=== PATIENT | female | born 1990 | race Caucasian/White ===

== ENCOUNTER 2016-09-30 21:06 | Emergency (ER) | payer MEDICAID ==
--- NOTE | ~2016-09-30 | ER ---
PATIENT'S NAME: LUKE MCKINNON [facility] AGE: 26 Y [address] ROOM: [place], [place] [address] LOCATION: [facility] ADMIT DATE: 09/30/2016 ER/Outpatient Report DISCHARGE DATE: 09/30/2016 FAMILY PHYSICIAN: Anderson Sandoval ATTENDING PHYSICIAN: Reinier Ortez Time of Arrival: 2106 hours. Time of Evaluation: 2120 hours. CHIEF COMPLAINT: Lump behind right ear, rapid heart rate. HISTORY OF PRESENT ILLNESS: This is a 26-year-old female, who presents to the ER with a couple of different complaints. She states she noticed a lump behind her right ear a couple of weeks ago. She was seen by her primary care physician in [place], and during that same time, she had a flare-up of her MRSA on the inside of her leg. She states that she was not quite for sure what the lump was behind her ear but thought it was a lymph node. She was ultimately started on Bactrim at that time. She states leg has healed up, but the lump behind her right ear is still there. She states that she constantly wonders what is wrong with it and feels like maybe it is causing her to have a headache now. She states then today, she noticed that her heart rate felt fast. She also believes she has been running a low-grade fever, but she has not taken her temperature. The patient states that she has had no injury to the right side of her head. She denies any ear pain. No upper respiratory infection. No cough. No sore throat. The patient states that she is also trying to lose weight. She has been cutting back on her Pepsi intake. She states that she normally drinks 40 mL of Pepsi a day, but today, she had less than one can. Mother states that she is a fairly anxious person. She does not take anything for that however. ALLERGIES: PLEASE SEE MEDICATION LIST IN NURSE'S NOTES. MEDICATIONS: Please see medication list in nurse's notes. PAST MEDICAL HISTORY: History of MRSA, ovarian cyst. PAST SURGICAL HISTORY: She has had a history of lithotripsy, tonsillectomy, adenoids, and C-sections. SOCIAL HISTORY: Smokes half pack a day. Denies any drug or alcohol use. PATIENT'S NAME: LUKE [facility]CKINNON [facility] AGE: 26 Y [address] ROOM: [place], [place] [address] LOCATION: [facility] ADMIT DATE: 09/30/2016 ER/Outpatient Report DISCHARGE DATE: 09/30/2016 FAMILY PHYSICIAN: Anderson Sandoval ATTENDING PHYSICIAN: Reinier Ortez REVIEW OF SYSTEMS: A 10-point review of system was completed and was negative with the exception of those discussed in the HPI. PHYSICAL EXAMINATION: VITAL SIGNS: Height 5 feet 6 inches stated, weight 106.2 kg taken, blood pressure is 153/97, pulse 93, respirations 18, temperature 99.3 degrees tympanically, saturations 95% on room air. Sevier Coma Score is 15. GENERAL: An alert, anxious 26-year-old, in no acute distress. HEENT: Head: Normocephalic. Eyes: Pupils are equal and reactive to light. Ears: TMs display good light reflexes bilaterally. Her right ear canal is slightly erythematic. There is no purulent drainage noted. Throat: No exudates or erythema. She does display moist mucous membranes. NECK: Supple. She does have some lymphadenopathy noted to the posterior and anterior chains. She does have some swelling noted to the posterior portion of her ear and under her jawline as well. It is slightly tender to palpate. There is no erythema. There are no abrasions or rashes noted. LUNGS: Clear to auscultation bilaterally. No wheezes or crackles. Normal respiratory effort. HEART: Regular rate and rhythm. No lifts, thrills, or murmurs. ABDOMEN: Soft, nontender. She has good bowel sounds throughout. No masses are palpated. EXTREMITIES: No clubbing, cyanosis, or edema. She has full range of motion of all limbs. LABORATORY DATA AND X-RAYS: CBC: White count is 9.3, hemoglobin is 12.7, platelets 364, ANC is 5.2. INR is 1.0. CMS is unremarkable. Cardiac enzymes: CPK 81, CK-MB is 1.1, troponin I is less than 0.040. TSH is normal at 1.540. EKG shows normal sinus rhythm. Chest x-ray was negative for any infiltrate. CT scan shows that increased number of several subcentimeter anterior and posterior cervical chain lymph nodes as well as scattered occipital lymph nodes. There is one lymph node that measures 7 mm in the right posterior articular subcutaneous soft tissue. IMPRESSION: 1. Lymphadenopathy. 2. Heart palpitations. 3. History of methicillin-resistant Staphylococcus aureus with recent Bactrim use. ASSESSMENT AND PLAN: I did discuss the patient's care with Dr. Ortez. The patient did rest comfortably the entire stay. I advised her to monitor her symptoms closely. PATIENT'S NAME: LUKE [facility]CK[facility]NON [facility] AGE: 26 Y [address] ROOM: [place], [place] [address] LOCATION: [facility] ADMIT DATE: 09/30/2016 ER/Outpatient Report DISCHARGE DATE: 09/30/2016 FAMILY PHYSICIAN: Anderson Sandoval ATTENDING PHYSICIAN: Reinier Ortez She needs to do Tylenol or ibuprofen as needed. She should continue doing her Bactrim as directed, and she needs to follow up with her primary care physician by the end of the week for followup care. The patient and the patient's mother understand and agree with care. MARCELLO HARLEY PA-C FOR [facility]/cassidy /[id number] d: t: 10/04/16 1342, OUTPATIENT REPORT
[2016-09-30 22:00] LABS: BASOPHIL # 0.1 K/uL (0.0-0.2); BASOPHIL % 0.8 %; EOSINOPHIL # 0.1 K/uL (0.0-0.5); EOSINOPHIL % 1.3 %; HEMATOCRIT 39.1 % (33.0-46.0); HEMOGLOBIN 12.7 g/dL (11.0-15.0); IMMATURE GRANULOCYTE % 0.3 %; LYMPHOCYTE # 3.2 K/uL (0.8-4.0); LYMPHOCYTE % 34.3 %; MCH 29.1 pg (27.0-34.0); MCHC 32.5 gm/dL (32.0-36.5); MCV 89.7 fl (83.0-98.0); MONOCYTE # 0.8 K/uL (0.0-1.0); MONOCYTE % 8.1 %; MPV 9.4 fl (9.4-12.4); NEUTROPHIL # (ANC) 5.2 K/uL (1.8-7.8); NEUTROPHIL % 55.2 %; NRBC % 0 /100WBC (0-0.00); PLATELET COUNT 364 K/uL (150-450); RBC 4.36 M/uL (3.50-5.00); RDW-CV 11.7 % (11.9-14.6); WBC 9.3 K/uL (4.0-11.0)
[2016-09-30 22:08] LABS: PROTIME 10.1 SECONDS (9.6-11.1); PTT 28 SECONDS (25-32)
[2016-09-30 22:18] LABS: CPK 81 IU/L (21-215)
[2016-09-30 23:00] LABS: ALBUMIN 3.7 gm/dL (3.5-5.0); ALK PHOS 93 IU/L (33-138); ALT 21 IU/L (12-78); ANION GAP 13.7 (10.0-19.0); AST 16 IU/L (10-40); BLOOD UREA NITROGEN 9 mg/dL (6-24); CALCIUM 8.6 mg/dL (8.5-10.5); CHLORIDE 109 mMol/L (96-110); CO2 23 mMol/L (22-32); CREATININE 0.7 mg/dL (0.5-1.1); ESTIMATED GFR (MDRD EQUATION) > 60; MAGNESIUM 2.4 mg/dL (1.3-2.6); POTASSIUM 3.7 mMol/L (3.7-5.1); SODIUM 142 mMol/L (135-145); TOTAL BILIRUBIN 0.1 mg/dL (0.0-1.5); TOTAL PROTEIN 7.1 g/dL (6.0-8.4)
== END 2016-09-30 23:55 | disposition disaster alternative care site (69) ==
LOC: GMED 21:06
PROVIDERS: Emergency Medicine
DX: R59.0 Localized enlarged lymph nodes (principal); R00.2 Palpitations; F17.210 Nicotine dependence, cigarettes, uncomplicated; Z86.14 Personal history of Methicillin resistant Staphylococcus aureus infection; Z90.89 Acquired absence of other organs; Z98.890 Other specified postprocedural states; Z79.899 Other long term (current) drug therapy
CPT/HCPCS: Q9967